=== PATIENT | female | born 1945 | race Caucasian/White ===

== ENCOUNTER 2016-11-03 16:08 | Emergency (ER) | payer OTHER ==
[2016-11-03 16:24] VITALS: RESP 18
[2016-11-03] MEDS ORDERED: ONDANSETRON 4 MG/2 ML VIAL IVP ONE (16:28)
[2016-11-03] MEDS ORDERED: NS 1,000 ML IV ONE (16:28)
--- NOTE | 2016-11-03 16:39 | EDPHY ---
H & P Time Seen by Provider: 11/03/16 16:25 HPI/ROS: CHIEF COMPLAINT: Nausea, vomiting, diarrhea HISTORY OF PRESENT ILLNESS: This patient is a 71 year old female who presents to the Emergency Department complaining of nausea, vomiting, and diarrhea with acute onset this morning. She reports that she is unable to keep food down due to persistent nausea. She has not identified any alleviating or factors for her symptoms. She denies abdominal pain, or fever or chills. Her daughter and granddaughter are also being seen in this facility for the same complaints. REVIEW OF SYSTEMS: Constitutional: No fever, no chills Eyes: No visual changes ENT: No sore throat Respiratory: No cough, no shortness of breath Cardiac: No chest pain Gastrointestinal: As in HPI Genitourinary: No hematuria, no dysuria Musculoskeletal: +joint pain due to arthritis Skin: No rash Neurological: No headache, no numbness, no weakness Psychiatric: No depression Past Medical/Surgical History: Osteoarthritis. Social History: Lives in [place]. Visiting daughter and grandchild. Smoking Status: Never smoked Physical Exam: General Appearance: Alert, no distress Eyes: Pupils equal and round, no conjunctival pallor or injection ENT, Mouth: Mucous membranes moist Neck: Normal inspection Respiratory: Lungs are clear to auscultation Cardiovascular: Regular rate and rhythm Gastrointestinal: Abdomen is soft and non- tender Neurological: A&O, nonfocal, normal gait Skin: Warm and dry, no rash Extremities: Nontender, no pedal edema Psychiatric: Mood and affect normal Constitutional: Initial Vital Signs Temperature (C) 36.6 C 11/03/16 16:22 Heart Rate 98 11/03/16 16:22 Respiratory Rate 18 11/03/16 16:22 Blood Pressure 119/72 11/03/16 16:22 O2 Sat (%) 98 11/03/16 16:22 O2 Delivery Mode Room Air Allergies/Adverse Reactions: iodine Allergy (Verified 11/03/16 16:25) Penicillins Allergy (Verified 11/03/16 16:26) surgical tape Allergy (Uncoded 11/03/16 16:26) Home Medications: Medication Instructions Recorded Valacyclovir 11/03/16 Medical Decision Making ED Course/Re-evaluation: This 71-year-old female presents with acute onset gastrointestinal upset including nausea, vomiting, and diarrhea beginning this morning. Her family is being seen in the ED with the same symptoms. She is alert and well-appearing. Her abdomen is benign on exam. I discussed with her my suspicion of gastroenteritis. Will proceed with labs and symptomatic treatment. IV established. 4mg IV Zofran and 1L IV NS administered. 15mg IV Toradol administered for arthralgia. Labs obtained. WBC slightly elevated at 9.71. Chemistries are unremarkable. 1727: On reevaluation, the patient is feeling better following administration of medications and fluid. She passed a fluid trial. She will be given a take home pack of Zofran to use PRN for nausea and vomiting. She understands the expected course of her illness and has been given customary return precautions. She will be discharged home in good condition. Differential Diagnosis: The differential diagnosis for the patient's nausea and vomiting included but was not limited to gastroenteritis, gastritis, appendicitis, and medication side effect. - Data Points Laboratory Results: Laboratory Results 11/03/16 16:40 11/03/16 16:40 11/03/16 11/03/16 16:40 16:40 WBC 9.71 10^3/uL H 10^3/uL (3.80-9.50) RBC 4.08 10^6/uL L 10^6/uL (4.18-5.33) Hgb 14.3 g/dL g/dL (12.6-16.3) Hct 40.5 % % (38.0-47.0) MCV 99.3 fL fL (81.5-99.8) MCH 35.0 pg H pg (27.9-34.1) MCHC 35.3 g/dL g/dL (32.4-36.7) RDW 12.5 % % (11.5-15.2) Plt Count 216 10^3/uL 10^3/uL (150-400) MPV 8.5 fL L fL (8.7-11.7) Neut % (Auto) 93.9 % H % (39.3-74.2) Lymph % (Auto) 3.1 % L % (15.0-45.0) [place] % (Auto) 2.0 % L % (4.5-13.0) Eos % (Auto) 0.6 % % (0.6-7.6) Baso % (Auto) 0.2 % L % (0.3-1.7) Nucleat RBC Rel Count 0.0 % % (0.0-0.2) Absolute Neuts (auto) 9.12 10^3/uL H 10^3/uL (1.70-6.50) Absolute Lymphs (auto) 0.30 10^3/uL L 10^3/uL (1.00-3.00) Absolute Monos (auto) 0.19 10^3/uL L 10^3/uL (0.30-0.80) Absolute Eos (auto) 0.06 10^3/uL 10^3/uL (0.03-0.40) Absolute Basos (auto) 0.02 10^3/uL 10^3/uL (0.02-0.10) Absolute Nucleated RBC 0.00 10^3/uL 10^3/uL (0-0.01) Immature Gran % 0.2 % % (0.0-1.1) Immature Gran # 0.02 10^3/uL 10^3/uL (0.00-0.10) Sodium 138 mEq/L mEq/L (134-144) Potassium 4.0 mEq/L mEq/L (3.5-5.2) Chloride 107 mEq/L mEq/L (97-110) Carbon Dioxide 22 mEq/l mEq/l (22-31) Anion Gap 9 mEq/L mEq/L (8-16) BUN 21 mg/dL mg/dL (7-23) Creatinine 0.6 mg/dL mg/dL (0.6-1.0) Estimated GFR > 60 Glucose 143 mg/dL H mg/dL (70-100) Calcium 9.2 mg/dL mg/dL (8.5-10.4) Medications Given: Discontinued Medications Sodium Chloride (Ns) 1,000 mls @ 0 mls/hr IV ONCE ONE PRN Reason: Wide Open Stop: 11/03/16 16:29 Last Admin: 11/03/16 16:52 Dose: 1,000 mls Ondansetron HCl (Zofran) 4 mg IVP EDNOW ONE Stop: 11/03/16 16:29 Last Admin: 11/03/16 16:53 Dose: 4 mg Departure - Departure Disposition: Home, Routine, Self-Care Clinical Impression: Gastroenteritis Condition: Good Instructions: Gastroenteritis (ED) Additional Instructions: 1. As we discussed, you should expect your nausea and vomiting to improve over the next 24 hours and your diarrhea to improve over the next 48. If your symptoms do not improve, or if they worsen, please return to the Emergency Department. Please also return to the ED if you experience high fever, severe abdominal pain, blood in your stool or vomit, or for other serious concerns. 2. Take one tab of Zofran every 4-6 hours as needed for nausea and vomiting. 3. Follow-up with your primary care provider for reevaluation when you return home to [place]. Referrals: PCP Not In,Dictionary [Medical Doctor] - As per Instructions Report Scribed for: Vilma Nazario Report Scribed by: Marlin Rand Date of Report: 11/03/16 Time of Report: 16:38 Physician Review and Approval Statement: 11/03/16 16:38 Portions of this note were transcribed by a medical massage therapist. I personally performed a history, physical exam, medical decision making, and confirmed accuracy of information the transcribed note.
[2016-11-03] MEDS ORDERED: ONDANSETRON 4MG PREPACK#2 BTL TAKEHOME ONE (16:49)
[2016-11-03 16:55] LABS: % IMMATURE GRANULYOCYTES 0.2 % (0.0-1.1); ABSOLUTE IMMATURE GRANULOCYTES 0.02 10^3/uL (0.00-0.10); ADD DIFF? NO; ADD MORPH? NO; ADD SCAN? NO; ATYPICAL LYMPHOCYTE FLAG 0 (0-99); FRAGMENT RBC FLAG 0 (0-99); HEMATOCRIT 40.5 % (38.0-47.0); HEMOGLOBIN 14.3 g/dL (12.6-16.3); LEFT SHIFT FLG 30 (0-99); LIPEMIA HEMOLYSIS FLAG 90 (0-99); MEAN CELL HEMOGLOBIN CONCENTR. 35.3 g/dL (32.4-36.7); MEAN CELL VOLUME 99.3 fL (81.5-99.8); MEAN PLATELET VOLUME 8.5 fL (8.7-11.7); PLATELET CLUMPS FLAG 0 (0-99); PLATELET COUNT 216 10^3/uL (150-400); RED BLOOD CELL COUNT 4.08 10^6/uL (4.18-5.33); RED CELL DISTRIBUTION WIDTH 12.5 % (11.5-15.2)
[2016-11-03 16:58] LABS: ANION GAP 9 mEq/L (8-16); CALCIUM 9.2 mg/dL (8.5-10.4); CARBON DIOXIDE 22 mEq/l (22-31); CHLORIDE 107 mEq/L (97-110); CREATININE 0.6 mg/dL (0.6-1.0); GLOMERULAR FILTRATION RATE > 60; GLUCOSE 143 mg/dL (70-100); SODIUM 138 mEq/L (134-144)
[2016-11-03] MEDS ORDERED: KETOROLAC 30 MG/1 ML SDV IVP ONE (17:03)
[2016-11-03] MEDS ORDERED: ONDANSETRON 4 MG/2 ML VIAL ONE (17:33)
[2016-11-03 18:39] VITALS: BP 118/80; PULSE 78; TEMP 98.4; O2SAT 96
== END 2016-11-03 18:37 | disposition home or self-care (01) ==
LOC: SUPCPDRO 16:08
DX: K52.9 Noninfective gastroenteritis and colitis, unspecified (principal)
CPT/HCPCS: 96361; 96374; 96375; 99284; J1885; J2405